=== PATIENT | female | born 1950 | race Caucasian/White ===

== ENCOUNTER 2019-06-26 08:24 | Outpatient (CLI) | payer MEDICARE | END 2019-06-26 23:59 | disposition home or self-care (01) | LOC: ROC 08:24 | PROVIDERS: ATTEND Radiology Radiation Oncology | DX: D33.3 Benign neoplasm of cranial nerves (principal); Z79.899 Other long term (current) drug therapy; Z79.890 Hormone replacement therapy | CPT/HCPCS: G0463 ==

== ENCOUNTER 2019-06-29 09:16 | Outpatient (CLI) | payer MEDICARE ==
[2019-06-29] MEDS ORDERED: MIDAZOLAM 1 MG/ML, 5ML ONE (09:49)
[2019-06-29] MEDS ORDERED: NALOXONE 1 MG/ML, 2ML ONE (09:49)
[2019-06-29] MEDS ORDERED: FLUMAZENIL 0.1 MG/1 ML, 5ML ONE (09:49)
[2019-06-29] MEDS ORDERED: FENTANYL PF 100 MCG/2ML ONE (09:49)
[2019-06-29] MEDS ORDERED: GADOTERATE 10 MMOL/20 ML SYR ONE (11:02)
== END 2019-06-29 23:59 | disposition home or self-care (01) ==
LOC: RAD 09:16
PROVIDERS: ATTEND Radiology Radiation Oncology
DX: D33.3 Benign neoplasm of cranial nerves (principal); Z79.890 Hormone replacement therapy; Z79.899 Other long term (current) drug therapy
CPT/HCPCS: 70553; 99156; 99157; A9575; J2250; J3010; J2310